=== PATIENT | female | born 1960 | race Caucasian/White ===

== ENCOUNTER 2016-03-07 12:13 | Emergency (ER) | payer BC ==
[2016-03-07 13:01] LABS: Hematocrit 38.1 % (37.0-47.0); Hemoglobin 13.2 gm/dL (12.5-16.0); Mean Cell Volume 89.4 fl (78-100); Mean Corpuscular Hgb Conc 34.6 g/dl (32-36); Mean Platelet Volume 9.6 fl (6.0-9.5); Neutrophil # 5.9 K/mm3 (1.3-6.0); Neutrophil % 59.4 % (42-75.0); Platelet Count 328 K/mm3 (150-450); Red Blood Count 4.26 M/mm3 (4.2-5.4); Red Cell Distribution Width 12.4 % (11.5-14.0); White Blood Count 9.9 K/mm3 (4.0-10.5)
[2016-03-07 13:13] LABS: Albumin * 3.7 gm/dl (3.4-5.0); BUN/Creatinine Ratio 9.1 (9.0-21.6); Bilirubin, Total 0.3 mg/dL (0.0-1.1); Ca. Corrected For Albumin 9.6 mg/dL (8.4-10.2); Calcium * 9.7 mg/dL (7.9-10.9); Total Protein 7.3 gm/dL (6.2-8.2)
[2016-03-07 13:23] LABS: Urine Appearance Clear; Urine Bilirubin Negative (NEGATIVE); Urine Blood Negative /ul (NEGATIVE); Urine Color Yellow; Urine Ketone Negative (NEGATIVE)
[2016-03-07 13:24] LABS: Urine Bacteria None Seen; Urine Nitrite Negative (NEGATIVE); Urine Protein Negative (NEGATIVE); Urine RBC None Seen /hpf (0-5); Urine Specific Gravity 1.005 SP.GR. (1.005-1.010); Urine Urobilinogen Normal (NORMAL); Urine WBC None Seen /hpf (0-5)
[2016-03-07] MEDS ORDERED: KETOROLAC TROMETHAMINE 30 MG/ML VIAL IV ONE (13:50)
[2016-03-07] MEDS ORDERED: NORMAL SALINE 1,000 ML IV PRN (13:50)
[2016-03-07] MEDS ORDERED: HYDROcodone/ACETAMINOPHEN 1 EACH TABLET PO ONE (13:50)
[2016-03-07] MEDS ORDERED: LEVOFLOXACIN/D5W 500 MG in Premix Bag 1 BAG IV ONE (13:51)
[2016-03-07] MEDS ORDERED: LEVOFLOXACIN 500 MG TABLET PO ONE (13:59)
[2016-03-07] MEDS ORDERED: HYDROcodone/ACETAMINOPHEN 1 EACH TABLET ONE (14:01)
[2016-03-07] MEDS ORDERED: LEVOFLOXACIN 500 MG TABLET ONE (14:01)
[2016-03-07 14:14] VITALS: BP 108/73
--- NOTE | 2016-03-24 10:57 | ERNOTE ---
Abdominal HPI - Narrative Date of Service: 03/07/16 - General Chief Complaint: Abdominal Pain Time Seen by Provider: 03/07/16 13:41 Source: patient Exam Limitations: no limitations - Immun/Allergies/Home Medications Immunizatons: IMMUNIZATION HX Immunizations Up to Date Yes History of Influenza Vaccine No Hx Pneumococcal Vaccination No Allergies/Adverse Reactions: Allergies sulfamethoxazole [From Bactrim] Allergy (Mild, Verified 03/10/16 09:30) Hives trimethoprim [From Bactrim] Allergy (Mild, Verified 03/10/16 09:30) Hives amoxicillin trihydrate [From Augmentin] Allergy (Unknown, Verified 03/10/16 09: 30) Hives diphenhydramine HCl [From Benadryl] Allergy (Unknown, Verified 03/10/16 09:30) morphine Adverse Reaction (Intermediate, Verified 03/10/16 09:30) personality change adhesive tape Adverse Reaction (Mild, Verified 03/10/16 09:30) skin blisters azithromycin [From Zithromax] Adverse Reaction (Mild, Verified 03/10/16 09:30) Nausea ciprofloxacin [From Cipro] Adverse Reaction (Mild, Verified 03/10/16 09:30) anxiety ciprofloxacin HCl [From Cipro] Adverse Reaction (Mild, Verified 03/10/16 09:30) anxiety codeine [Codeine] Adverse Reaction (Mild, Verified 03/10/16 09:30) Nausea doxycycline Adverse Reaction (Mild, Verified 03/10/16 09:30) Headache hydroxyzine HCl [From Vistaril] Adverse Reaction (Mild, Verified 03/10/16 09:30) parania hydroxyzine pamoate [From Vistaril] Adverse Reaction (Mild, Verified 03/10/16 09 :30) paranoia Iodinated Contrast Media - IV Dye [IV Dye, Iodine Containing Contrast ] Adverse Reaction (Mild, Verified 03/10/16 09:30) Vomiting levofloxacin [From Levaquin] Adverse Reaction (Mild, Verified 03/10/16 09:30) Other nausea, jittery loratadine [From Claritin] Adverse Reaction (Mild, Verified 03/10/16 09:30) Other nausea, jittery metronidazole [From Flagyl] Adverse Reaction (Mild, Verified 03/10/16 09:30) Vomiting Metronidazole HCl [From Flagyl] Adverse Reaction (Mild, Verified 03/10/16 09:30) Vomiting Sulfa (Sulfonamide Antibiotics) [Sulfa(Sulfonamide Antibiotics)] Adverse Reaction (Mild, Verified 03/10/16 09:30) Vomiting Home Medications: HOME MEDICATIONS Alprazolam [Xanax] 1 mg PO HS 08/30/13 [Last Taken 08/30/13] ALPRAZolam [Xanax] 0.25 mg PO BID 10/17/13 [Last Taken Unknown] Magnesium Hydroxide [Milk Of Magnesia] 30 ml PO PRN PRN 05/19/14 [Last Taken Unknown] Multivitamin [Multi-Vitamin Daily] 1 each PO DAILY 05/19/14 [Last Taken Unknown] Escitalopram Oxalate [Lexapro] 5 mg PO DAILY 07/15/14 [Last Taken Unknown] Hydrocodone/Acetaminophen [Lortab 5-325 mg Tablet] 1 each PO Q6H PRN #20 tablet 03/07/16 [Last Taken Unknown] Levofloxacin [Levaquin] 500 mg PO DAILY #10 tablet 03/07/16 [Last Taken Unknown] Polyethylene Glycol 3350 [Miralax] 17 gm PO BID 03/07/16 [Last Taken Unknown] Dicyclomine HCl [Bentyl] 10 - 20 mg PO TID #80 tab 03/10/16 [Last Taken Unknown] - History of Present Illness Narrative: Patient seen on 03/07/2016 came in the left lower abdominal pain, been going on for the past few days she's had known history of diverticulitis she's wanting to get on some antibiotics. She denies any fever has been nausea no vomiting no diarrhea no blood in her stools no headache or dizziness. Denies any chest pain or shortness of breath. Date (Duration): 03/21/16 Timing: intermittent Quality: mild Activities at Onset: none - integument Associated Symptoms: Absent: headache, back pain - L, chest pain, neck pain, diaphoresis, diarrhea-gross blood, diarrhea-mucous - K which felt, fever/chills , heartburn - just disabled and will try to give a charts, nausea, vomiting, loss of appetite - that he has saw that, shortness of breath Review of Systems - Review of Systems Constitutional: Absent: fever, chills, weakness, fatigue, malaise, weight loss - but no chills stable Respiratory: Absent: shortness of breath, cough Cardiology: Absent: palpitations, syncope Musculoskeletal: Absent: neck pain Skin: Absent: dryness - decision-making there is absolutely Neurological: Absent: headache All Other Systems: All systems neg except as marked - Patient's Past Medical History Patient History - Medical: Anxiety, Arthritis, Depression Patient History - Cardiac/Respiratory: Asthma Patient History - Cancer: No Hx of Cancer Patient History - Surgical Procedures: Cholecystectomy, Hysterectomy, Tubal Ligation Patient History - Other: None - Family History Mother Family History - Medical: History Unknown Father Family History - Medical: History Unknown - Social History Living Situations: home Smoking Status: Current some day smoker Alcohol Use: none Drug Use: none - Immunizations Immunizations Up to Date: Yes Hx Pneumococcal Vaccination: No History of Influenza Vaccine: No Physical Exam - Physical Exam General Appearance: Present: wd/wn, alert, no apparent distress Ears, Nose, Throat: Present: normal ENT inspection, hearing grossly normal, normal pharynx - normal D is no metacarpal Neck: Present: normal inspection, nontender, supple, full range of motion - symmetric in the hospital no I don't want Respiratory: Present: no respiratory distress, normal breath sounds, no accessory muscle use, chest nontender, lungs clear Cardiovascular/Chest: Present: regular rate, rhythm, no murmur, normal peripheral pulses Gastrointestinal/Abdominal: Present: normal bowel sounds, nondistended, soft, no organomegaly, tenderness - minimal tenderness left lower quadrant no rebound guarding rigidity Back Exam: Present: normal inspection Extremity Exam: Present: normal inspection, non-tender Neurological Exam: Present: alert, oriented, normal mood/affect Skin Exam: Present: normal color, warm/dry Lymphatic Exam: Present: no adenopathy ED Progress - Progress/Reassessment Chief Complaint: Abdominal Pain Progress:: Unchanged Progress Note-Subjective: 03/07/16 13:55 Patient reassessed doing well defers on any imaging tests at this point time reviewed lab work, and antibiotic levofloxacin she is to return back to ER with any change or worsening symptoms. Warning signs symptoms have been reviewed with patient return back to ER with good understanding Departure - Departure Clinical Impression: Diverticulitis Qualifiers: Diverticulitis site: large intestine Diverticulitis bleeding: without bleeding Diverticulitis complication: without perforation or abscess Qualified Code(s): K57.32 - Diverticulitis of large intestine without perforation or abscess without bleeding Disposition: Home self-care Condition: Good Instructions: Diverticulitis, [id number] Additional Instructions: follow of the doctor in 2 to 3 days returning back to the ER with any change or worsening symptoms Referrals: Christian Orta DO [Primary Care Provider] - Prescriptions: Hydrocodone/Acetaminophen [Lortab 5-325 mg Tablet] 1 each PO Q6H PRN #20 tablet PRN Reason: Pain Levofloxacin [Levaquin] 500 mg PO DAILY #10 tablet
== END 2016-03-07 14:19 | disposition home or self-care (01) ==
LOC: ER 12:13
DX: K57.32 Diverticulitis of large intestine without perforation or abscess without bleeding (principal); F17.210 Nicotine dependence, cigarettes, uncomplicated; F41.9 Anxiety disorder, unspecified; F32.9 Major depressive disorder, single episode, unspecified

== ENCOUNTER 2016-03-10 09:11 | Emergency (ER) | payer BC ==
[2016-03-10] MEDS ORDERED: ONDANSETRON HCL/PF 2 MG/ML VIAL IV PRN (10:11)
[2016-03-10] MEDS ORDERED: KETOROLAC TROMETHAMINE 30 MG/ML VIAL IV ONE (10:19)
[2016-03-10] MEDS ORDERED: NORMAL SALINE 1,000 ML IV ONE (10:19)
--- NOTE | 2016-03-10 10:20 | ERNOTE ---
Abdominal HPI - Narrative Date of Service: 03/10/16 - General Chief Complaint: Abdominal Pain Time Seen by Provider: 03/10/16 09:57 Source: patient Exam Limitations: no limitations - Immun/Allergies/Home Medications Immunizatons: IMMUNIZATION HX Immunizations Up to Date Yes History of Influenza Vaccine No Hx Pneumococcal Vaccination No Allergies/Adverse Reactions: Allergies sulfamethoxazole [From Bactrim] Allergy (Mild, Verified 03/10/16 09:30) Hives trimethoprim [From Bactrim] Allergy (Mild, Verified 03/10/16 09:30) Hives amoxicillin trihydrate [From Augmentin] Allergy (Unknown, Verified 03/10/16 09: 30) Hives diphenhydramine HCl [From Benadryl] Allergy (Unknown, Verified 03/10/16 09:30) morphine Adverse Reaction (Intermediate, Verified 03/10/16 09:30) personality change adhesive tape Adverse Reaction (Mild, Verified 03/10/16 09:30) skin blisters azithromycin [From Zithromax] Adverse Reaction (Mild, Verified 03/10/16 09:30) Nausea ciprofloxacin [From Cipro] Adverse Reaction (Mild, Verified 03/10/16 09:30) anxiety ciprofloxacin HCl [From Cipro] Adverse Reaction (Mild, Verified 03/10/16 09:30) anxiety codeine [Codeine] Adverse Reaction (Mild, Verified 03/10/16 09:30) Nausea doxycycline Adverse Reaction (Mild, Verified 03/10/16 09:30) Headache hydroxyzine HCl [From Vistaril] Adverse Reaction (Mild, Verified 03/10/16 09:30) parania hydroxyzine pamoate [From Vistaril] Adverse Reaction (Mild, Verified 03/10/16 09 :30) paranoia Iodinated Contrast Media - IV Dye [IV Dye, Iodine Containing Contrast ] Adverse Reaction (Mild, Verified 03/10/16 09:30) Vomiting levofloxacin [From Levaquin] Adverse Reaction (Mild, Verified 03/10/16 09:30) Other nausea, jittery loratadine [From Claritin] Adverse Reaction (Mild, Verified 03/10/16 09:30) Other nausea, jittery metronidazole [From Flagyl] Adverse Reaction (Mild, Verified 03/10/16 09:30) Vomiting Metronidazole HCl [From Flagyl] Adverse Reaction (Mild, Verified 03/10/16 09:30) Vomiting Sulfa (Sulfonamide Antibiotics) [Sulfa(Sulfonamide Antibiotics)] Adverse Reaction (Mild, Verified 03/10/16 09:30) Vomiting Home Medications: HOME MEDICATIONS Alprazolam [Xanax] 1 mg PO HS 08/30/13 [Last Taken 08/30/13] ALPRAZolam [Xanax] 0.25 mg PO BID 10/17/13 [Last Taken Unknown] Magnesium Hydroxide [Milk Of Magnesia] 30 ml PO PRN PRN 05/19/14 [Last Taken Unknown] Multivitamin [Multi-Vitamin Daily] 1 each PO DAILY 05/19/14 [Last Taken Unknown] Escitalopram Oxalate [Lexapro] 5 mg PO DAILY 07/15/14 [Last Taken Unknown] Hydrocodone/Acetaminophen [Lortab 5-325 mg Tablet] 1 each PO Q6H PRN #20 tablet 03/07/16 [Last Taken Unknown] Levofloxacin [Levaquin] 500 mg PO DAILY #10 tablet 03/07/16 [Last Taken Unknown] Polyethylene Glycol 3350 [Miralax] 17 gm PO BID 03/07/16 [Last Taken Unknown] Dicyclomine HCl [Bentyl] 10 - 20 mg PO TID #80 tab 03/10/16 [Last Taken Unknown] - History of Present Illness Narrative: Pt. with known hx of constipation and diverticulitis comes in with c/o L abdominal pain for a week that has worsened despite starting treatment for diverticulitis on 03/07/16. Pt. states that she has been trying sprite, water, soup, juice, and yogurt to limit her diet for treatment without relief. Review of Systems - Review of Systems Constitutional: Present: no symptoms reported. Absent: recent illness, fever, chills, malaise, weight loss EYE: Present: no symptoms reported. Absent: eye pain, blurred vision, double vision, vision changes ENT: Present: no symptoms reported. Absent: ear pain, nose pain, nose congestion, nasal drainage, sore throat Respiratory: Present: no symptoms reported. Absent: shortness of breath, cough , wheezing Cardiology: Present: no symptoms reported. Absent: chest pain, palpitations, edema Gastrointestinal/Abdominal: Present: nausea, constipation, abdominal pain, eating less, drinking less Genitourinary: Present: no symptoms reported Musculoskeletal: Present: back pain - B flank Skin: Present: no symptoms reported. Absent: rash, lesions Neurological: Present: no symptoms reported. Absent: anxiety, weakness, numbness Endocrine: Present: no symptoms reported All Other Systems: All systems neg except as marked - Patient's Past Medical History Patient History - Medical: Anxiety, Arthritis, Depression, Other - diverticulitis Patient History - Cancer: No Hx of Cancer Patient History - Surgical Procedures: Cholecystectomy, Hysterectomy, Tubal Ligation, Other - adhesion removal - Family History Mother Family History - Medical: History Unknown Father Family History - Medical: History Unknown - Social History Living Situations: home Smoking Status: Current every day smoker Have you smoked in the past 12 months: Yes Do you dip or chew tobacco: No Alcohol Use: none Drug Use: none Physical Exam - Physical Exam General Appearance: Present: wd/wn, alert, no apparent distress Eye Exam: Normal inspection: bilateral, PERRL: bilateral, EOMI: bilateral Ears, Nose, Throat: Present: normal ENT inspection, hearing grossly normal Neck: Present: normal inspection, nontender, supple, full range of motion. Absent: lymphadenopathy (R), lymphadenopathy (L) Respiratory: Present: no respiratory distress, normal breath sounds, no accessory muscle use, chest nontender, lungs clear Cardiovascular/Chest: Present: regular rate, rhythm, no murmur, normal peripheral pulses Gastrointestinal/Abdominal: Present: abnormal bowel sounds - hypo, distended, guarding. Absent: McBurney sign, Obturator sign, Kelley sign, Psoas sign Back Exam: Present: normal range of motion, no vertebral tenderness, CVA tenderness (R), CVA tenderness (L) Extremity Exam: Present: normal inspection Neurological Exam: Present: alert, oriented, normal mood/affect, no motor/ sensory deficits Skin Exam: Present: normal color, warm/dry ED Progress - Results and Orders Patient's Lab Results:: I have reviewed the patient's lab results. - Vital Signs Patient's Vital Signs:: I have reviewed the patient's vital signs. Vital Signs: Vital Signs 03/10/16 09:24 Temperature 36.4 C L Pulse Rate 95 Respiratory 16 Rate Blood Pressure 96/69 O2 Sat by Pulse 96 Oximetry - CT/Ultrasound CT/Ultrasound Narrative: CT abdomen: IMPRESSION: DIVERTICULOSIS WITH CHANGES SUGGESTING EARLY OR MILD SIGMOID DIVERTICULITIS. ATHEROSCLEROTIC DISEASE. NO ACUTE INTRA-ABDOMINAL OR PELVIC PATHOLOGY OTHERWISE IDENTIFIED WITHIN THE LIMITATIONS OF A NONCONTRAST STUDY. - Progress/Reassessment Chief Complaint: Abdominal Pain Departure - Departure Clinical Impression: Diverticulitis Qualifiers: Diverticulitis site: large intestine Diverticulitis bleeding: without bleeding Diverticulitis complication: without perforation or abscess Qualified Code(s): K57.32 - Diverticulitis of large intestine without perforation or abscess without bleeding Disposition: Home self-care Condition: Good Instructions: Diverticulitis, [id number] Additional Instructions: Please follow up with primary provider in 2-3 days. Continue current antibiotic treatment. Prescriptions: Dicyclomine HCl [Bentyl] 10 - 20 mg PO TID #80 tab
[2016-03-10 10:23] LABS: Urine Bilirubin Negative (NEGATIVE); Urine Blood Negative /ul (NEGATIVE); Urine Ketone Negative (NEGATIVE); Urine Nitrite Negative (NEGATIVE); Urine Protein Negative (NEGATIVE); Urine Specific Gravity <=1.005 SP.GR. (1.005-1.010); Urine Urobilinogen Normal (NORMAL)
[2016-03-10] MEDS ORDERED: KETOROLAC TROMETHAMINE 30 MG/ML VIAL ONE (10:25)
[2016-03-10] MEDS ORDERED: ONDANSETRON HCL/PF 2 MG/ML VIAL ONE (10:25)
[2016-03-10 10:31] LABS: Hematocrit 39.2 % (37.0-47.0); Hemoglobin 13.5 gm/dL (12.5-16.0); Mean Cell Volume 88.9 fl (78-100); Mean Corpuscular Hemoglobin 30.6 pg (27-31); Mean Corpuscular Hgb Conc 34.4 g/dl (32-36); Mean Platelet Volume 9.8 fl (6.0-9.5); Neutrophil # 5.9 K/mm3 (1.3-6.0); Neutrophil % 61.5 % (42-75.0); Platelet Count 338 K/mm3 (150-450); Red Blood Count 4.41 M/mm3 (4.2-5.4); Red Cell Distribution Width 12.3 % (11.5-14.0); White Blood Count 9.6 K/mm3 (4.0-10.5)
[2016-03-10 10:33] LABS: Urine Appearance Clear; Urine Bacteria None Seen; Urine Color Yellow; Urine RBC None Seen /hpf (0-5); Urine WBC None Seen /hpf (0-5)
[2016-03-10 10:44] LABS: Albumin * 3.6 gm/dl (3.4-5.0); Anion Gap 13.4 mmol/L (6.8-13.8); BUN/Creatinine Ratio 15.5 (9.0-21.6); Bilirubin, Total 0.2 mg/dL (0.0-1.1); Ca. Corrected For Albumin 9.8 mg/dL (8.4-10.2); Calcium * 9.8 mg/dL (7.9-10.9); Carbon Dioxide 27.5 mmol/L (24-32.6); Potassium 3.9 mmol/L (3.4-4.6); Total Protein 7.9 gm/dL (6.2-8.2)
[2016-03-10] MEDS ORDERED: ONDANSETRON HCL/PF 2 MG/ML VIAL IV ONE (10:44)
[2016-03-10] MEDS ORDERED: DIATRIZOATE MEGLU/DIATRIZO SOD 30 ML BTL ONE (10:52)
[2016-03-10] MEDS ORDERED: DIATRIZOATE MEGLU/DIATRIZO SOD 30 ML BTL PO ONE (10:54)
[2016-03-10 12:52] VITALS: BP 99/72
== END 2016-03-10 13:19 | disposition home or self-care (01) ==
LOC: ER 09:11
DX: K57.32 Diverticulitis of large intestine without perforation or abscess without bleeding (principal); F17.210 Nicotine dependence, cigarettes, uncomplicated; Z90.49 Acquired absence of other specified parts of digestive tract; Z90.710 Acquired absence of both cervix and uterus; F41.1 Generalized anxiety disorder

== ENCOUNTER 2016-08-27 20:47 | Emergency (ER) | payer BC ==
[2016-08-27 21:13] LABS: Urine Bilirubin Negative (NEGATIVE); Urine Ketone Negative (NEGATIVE); Urine Nitrite Negative (NEGATIVE); Urine Protein Negative (NEGATIVE); Urine Specific Gravity <=1.005 SP.GR. (1.005-1.010); Urine Urobilinogen Normal (NORMAL); Urine pH 5.5 pH (5.0-7.0)
[2016-08-27] MEDS ORDERED: ONDANSETRON HCL/PF 2 MG/ML VIAL IV ONE ×2 (21:19→22:50)
[2016-08-27] MEDS ORDERED: NORMAL SALINE 1,000 ML IV ONE (21:19)
[2016-08-27 21:21] LABS: Urine Appearance Clear; Urine Blood 5 /ul (NEGATIVE); Urine Color Yellow
[2016-08-27 21:22] LABS: Urine Bacteria TRACE; Urine RBC None Seen /hpf (0-5); Urine WBC None Seen /hpf (0-5)
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
[2016-08-27 21:31] LABS: Hemoglobin 13.6 gm/dL (12.5-16.0); Mean Corpuscular Hemoglobin 31.1 pg (27-31); Mean Corpuscular Hgb Conc 34.9 g/dl (32-36); Mean Platelet Volume 9.8 fl (6.0-9.5); Neutrophil # 7.4 K/mm3 (1.3-6.0); Neutrophil % 66.9 % (42-75.0); Platelet Count 350 K/mm3 (150-450); Red Blood Count 4.38 M/mm3 (4.2-5.4); Red Cell Distribution Width 12.4 % (11.5-14.0)
[2016-08-27] MEDS ORDERED: ONDANSETRON HCL/PF 2 MG/ML VIAL ONE ×2 (21:31→22:52)
[2016-08-27 21:44] LABS: ALT 29 U/L (19-67); AST 17 U/L (0-48); Alkaline Phosphatase * 80 U/L (50-170); Anion Gap 15.8 mmol/L (6.8-13.8); BUN/Creatinine Ratio 18.1 (9.0-21.6); Bilirubin, Total 0.3 mg/dL (0.0-1.1); Blood Urea Nitrogen 13 mg/dL (3-23); Ca. Corrected For Albumin 9.3 mg/dL (8.4-10.2); Calcium * 9.6 mg/dL (7.9-10.9); Carbon Dioxide 25.4 mmol/L (24-32.6); Chloride 105 mmol/L (97-106); Glucose * 119 mg/dL (70-110); Potassium 4.2 mmol/L (3.4-4.6); Sodium 142 mmol/L (132-142); Total Protein 7.9 gm/dL (6.2-8.2)
[2016-08-27] MEDS ORDERED: DIATRIZOATE MEGLU/DIATRIZO SOD 30 ML BTL PO ONE (22:48)
[2016-08-27] MEDS ORDERED: DIATRIZOATE MEGLU/DIATRIZO SOD 30 ML BTL ONE (22:52)
[2016-08-27] MEDS ORDERED: ACETAMINOPHEN 500 MG TABLET PO ONE ×2 (23:57)
[2016-08-28 01:07] VITALS: BP 109/65
[2016-08-28] MEDS ORDERED: PROMETHAZINE HCL 25 MG/ML AMPUL IM ONE (01:26)
[2016-08-28] MEDS ORDERED: PROMETHAZINE HCL 25 MG/ML AMPUL ONE (01:28)
== END 2016-08-28 01:40 | disposition home or self-care (01) ==
LOC: ER 20:47
DX: K57.90 Diverticulosis of intestine, part unspecified, without perforation or abscess without bleeding (principal); K59.00 Constipation, unspecified; F17.200 Nicotine dependence, unspecified, uncomplicated
CPT/HCPCS: 36415; 74020; 74176; 80053; 81001; 85025; 85652; 86140; 93005; 96372; 96374; 99284; J2405

== ENCOUNTER 2020-05-08 03:49 | Inpatient (IN) ==
[2020-05-08] MEDS ORDERED: ONDANSETRON HCL/PF 2 MG/ML VIAL IV ONE (04:22)
[2020-05-08] MEDS ORDERED: NORMAL SALINE 1,000 ML IV ONE (04:22)
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
[2020-05-08 04:34] LABS: Hematocrit 36.7 % (37.0-47.0); Hemoglobin 12.1 gm/dL (12.5-16.0); Mean Cell Volume 91.8 fl (78-100); Mean Corpuscular Hemoglobin 30.3 pg (27-31); Mean Platelet Volume 9.3 fl (8-12.5); Neutrophil # 8.6 K/mm3 (1.3-6.0); Platelet Count 355 K/mm3 (150-450); Red Cell Distribution Width 12.3 % (11.5-14.0); White Blood Count 11.8 K/mm3 (4.0-10.5)
[2020-05-08 04:47] LABS: Albumin * 3.3 gm/dl (3.4-5.0); Anion Gap 13.2 mmol/L (6.8-13.8); BUN/Creatinine Ratio 8.4 (9.0-21.6); Bilirubin, Total 0.4 mg/dL (0.0-1.1); Calcium * 8.8 mg/dL (7.9-10.9); Carbon Dioxide 28.6 mmol/L (24-32.6); Potassium 3.8 mmol/L (3.4-4.6); Total Protein 7.1 gm/dL (6.2-8.2)
[2020-05-08] MEDS ORDERED: KETOROLAC TROMETHAMINE 30 MG/ML VIAL IV ONE (05:51)
[2020-05-08] MEDS ORDERED: MEROPENEM 1 GM in NORMAL SALINE 100 ML IV ONE (06:00)
[2020-05-08] MEDS ORDERED: CYCLOBENZAPRINE HCL 10 MG TABLET PO PRN (08:39)
[2020-05-08] MEDS ORDERED: ALBUTEROL SULFATE/IPRATROPIUM 3 ML NEBU IH PRN (08:43)
[2020-05-08] MEDS ORDERED: ALPRAZolam 0.25 MG TABLET PO PRN (08:43)
[2020-05-08] MEDS ORDERED: ALBUTEROL SULFATE 2.5 MG/0.5 ML VIAL.NEB IH PRN (08:45)
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
[2020-05-08] MEDS: HYDROmorphone HCL 1 MG/ML DISP.SYRIN IV PRN ×2 (08:59→20:07)
[2020-05-08] MEDS: VITAMIN E (DL,TOCOPHERYL ACET) 400 UNITS CAPSULE PO SCH (09:30)
[2020-05-08] MEDS: SACCHAROMYCES BOULARDII 250 MG CAPSULE PO SCH ×2 (09:30→20:11)
[2020-05-08] MEDS: PANTOPRAZOLE SODIUM 20 MG TABLET.DR PO SCH (09:30)
[2020-05-08] MEDS: CYANOCOBALAMIN 1,000 MCG TABLET PO SCH (09:30)
[2020-05-08] MEDS: ASCORBIC ACID 500 MG TABLET PO SCH (09:31)
[2020-05-08] MEDS: CHOLECALCIFEROL 1,000 UNIT CAPSULE PO SCH (09:31)
[2020-05-08] MEDS: FLUTICASONE PROPION/SALMETEROL 14 PUFF DISK.W.DEV IH SCH ×2 (09:31→20:11)
[2020-05-08] MEDS: MULTIVITAMINS 1 CAP CAPSULE PO SCH (09:31)
[2020-05-08] MEDS: POLYETHYLENE GLYCOL 3350 17 GM PACKET PO SCH ×2 (09:32→20:11)
[2020-05-08] MEDS: PSYLLIUM SEED 1 PACKET PACKET PO SCH (09:32)
[2020-05-08] MEDS: KETOROLAC TROMETHAMINE 30 MG/ML VIAL IV PRN ×2 (13:51→20:04)
[2020-05-08] MEDS: MEROPENEM 1 GM in NORMAL SALINE 100 ML IV SCH ×2 (13:52→21:13)
[2020-05-08] MEDS: ACETAMINOPHEN 325 MG TABLET PO PRN (15:33)
[2020-05-09] MEDS: HYDROmorphone HCL 1 MG/ML DISP.SYRIN IV PRN ×2 (02:10→08:08)
[2020-05-09] MEDS: KETOROLAC TROMETHAMINE 30 MG/ML VIAL IV PRN ×4 (03:09→23:49)
[2020-05-09 06:16] LABS: Hemoglobin 10.8 gm/dL (12.5-16.0); Mean Cell Volume 93.5 fl (78-100); Mean Corpuscular Hemoglobin 30.6 pg (27-31); Mean Corpuscular Hgb Conc 32.7 g/dl (32-36); Mean Platelet Volume 9.5 fl (8-12.5); Neutrophil # 5.8 K/mm3 (1.3-6.0); Neutrophil % 60.2 % (42-75.0); Platelet Count 306 K/mm3 (150-450); Red Blood Count 3.53 M/mm3 (4.2-5.4); Red Cell Distribution Width 12.5 % (11.5-14.0); White Blood Count 9.7 K/mm3 (4.0-10.5)
[2020-05-09 06:28] LABS: Anion Gap 10.3 mmol/L (6.8-13.8); BUN/Creatinine Ratio 6.7 (9.0-21.6); Bilirubin, Total 0.3 mg/dL (0.0-1.1); Ca. Corrected For Albumin 8.9 mg/dL (8.4-10.2); Calcium * 8.4 mg/dL (7.9-10.9); Carbon Dioxide 27.2 mmol/L (24-32.6); Potassium 3.5 mmol/L (3.4-4.6); Total Protein 6.2 gm/dL (6.2-8.2)
[2020-05-09] MEDS: MEROPENEM 1 GM in NORMAL SALINE 100 ML IV SCH ×3 (06:48→21:04)
[2020-05-09] MEDS: PANTOPRAZOLE SODIUM 20 MG TABLET.DR PO SCH (06:48)
[2020-05-09] MEDS: POLYETHYLENE GLYCOL 3350 17 GM PACKET PO SCH ×2 (08:07→20:59)
[2020-05-09] MEDS: CHOLECALCIFEROL 1,000 UNIT CAPSULE PO SCH (08:07)
[2020-05-09] MEDS: PSYLLIUM SEED 1 PACKET PACKET PO SCH (08:07)
[2020-05-09] MEDS: FLUTICASONE PROPION/SALMETEROL 14 PUFF DISK.W.DEV IH SCH ×2 (08:07→20:58)
[2020-05-09] MEDS: SACCHAROMYCES BOULARDII 250 MG CAPSULE PO SCH ×2 (08:08→20:58)
[2020-05-09] MEDS: MULTIVITAMINS 1 CAP CAPSULE PO SCH (08:08)
[2020-05-09] MEDS: VITAMIN E (DL,TOCOPHERYL ACET) 400 UNITS CAPSULE PO SCH (08:08)
[2020-05-09] MEDS: CYANOCOBALAMIN 1,000 MCG TABLET PO SCH (08:08)
[2020-05-09] MEDS: ASCORBIC ACID 500 MG TABLET PO SCH (08:08)
[2020-05-09] MEDS ORDERED: HYDROmorphone HCL 2 MG TABLET PO PRN (08:14)
[2020-05-09] MEDS ORDERED: ONDANSETRON 4 MG TAB.RAPDIS PO PRN (09:01)
--- NOTE | 2020-05-09 09:10 | PN ---
Subjective - Date and Time Seen Date: 05/09/20 Time: 08:19 Subjective Narrative: She states she feels well today. She has been ambulating. She had a bowel movement today. She is tolerating her diet. Denies nausea or vomiting. Her abdominal pain is 5-6 out of 10 and is well controlled with IV medications Objective - Review of Systems Generalized/Overall Review: Denies: Fever Respiratory: Denies: Shortness of Breath Cardiac: Denies: Chest Pain Abdominal: Reports: Abdominal Pain - Left lower quadrant Misc: All systems neg except as marked - Vitals Vitals: Last Vital Signs Temp 36.7 C 05/09/20 06:46 Pulse 86 05/09/20 06:46 Resp 16 05/09/20 06:46 BP 113/71 05/09/20 06:46 Pulse Ox 97 05/09/20 06:46 - Abnormal Lab Findings Abnormal Lab Findings: Abnormal Lab Results 05/09/20 05/09/20 Range/Units 06:11 06:11 RBC 3.53 L (4.2-5.4) M/mm3 Hgb 10.8 L (12.5-16.0) gm/dL Hct 33.0 L (37.0-47.0) % Monocytes % 9.4 H (0.0-9) % BUN/Creatinine Ratio 6.7 L (9.0-21.6) Albumin 3.0 L (3.4-5.0) gm/dl - Exam Constitutional: Present: Alert, Oriented x3, Cooperative, Well developed, Well nourished, No distress ENT Exam: Present: hearing grossly normal, moist mucous membranes Neck: Present: non-tender, supple. Absent: lymphadenopathy (R), lymphadenopathy (L) Respiratory: Present: lungs clear, no respiratory distress, no accessory muscle use, No wheezing. Absent: crackles, rhonchi Cardiovascular/Chest: Present: normal peripheral pulses, regular rate, rhythm, no edema, no murmur Abdomen: Present: Normal bowel sounds, soft, obese, tender - Left lower quadrant. Absent: rebound tenderness Extremity: Present: no pedal edema Skin Exam: Present: normal color, warm/dry Neurologic: Present: alert, normal mood/affect Appearance: Present: appropriate appearance, appropriate insight Eye contact: Present: cooperative, good eye contact Thoughts: Present: normal thought pattern, normal mood /affect Assessment/Plan Plan Narrative: 59-year-old female with a past medical history of diverticulitis, anxiety, depression, obesity, osteoarthritis, asthma, GERD presents from home with complaints of headache, nausea, vomiting and abdominal pain. She developed her symptoms 3 days ago and presented to the ER. She was diagnosed with diverticulitis and sent home on tramadol. Her pain persisted and she returned to the ER yesterday. CT abdomen and pelvis was performed and that showed acute uncomplicated sigmoid diverticulitis, she had a mild leukocytosis of 11.8, the rest of her vitals were stable. She states she had a fever at home with a temperature of 100. Her vitals have been stable here. She was discharged home on Levaquin and tramadol. She presented to the ER for the second time yesterday and was given Dilaudid for pain management. She states the oral Dilaudid was n ot effective and she developed a severe headache, nausea and vomiting and presented back to the ER. She was admitted early this morning and was started on meropenem. She has an extensive allergy/adverse effect to many medications that 5 meropenem was chosen. Her leukocytosis has resolved. White blood cell has come down from 11.8-9.7. She is tolerating a liquid diet. I will advance her to a soft diet today. I will attempt to transition her to oral Dilaudid. Start Zofran as needed for nausea. Discharge planning for tomorrow on ertapenem IV 1 g daily to be administered in the [place]. Plan #1 continue with meropenem 1 g every 8 hours, day 2, continue with probiotics #2 pain management transition her to oral Dilaudid 1 mg every 4 hours as needed. #3 CBC and CMP in the morning #4 VTE prophylaxis with SCDs and early ambulation, because I am using Toradol for pain management I would like to minimize her risk of bleeding.. #5 resume home medications for comorbidities #6 start Zofran 4 mg every 6 hours as needed. - Problems/Diagnosis (1) Diverticulitis Problem: Acute (2) Headache Problem: Resolved Qualifiers: Headache type: tension-type (3) Anxiety and depression Problem: Chronic (4) GERD (gastroesophageal reflux disease) Problem: Chronic Qualifiers: (5) Obesity (BMI 30.0-34.9) Problem: Chronic (6) Osteoarthritis Problem: Chronic
[2020-05-09] MEDS: HYDROmorphone HCL 2 MG TABLET PO PRN ×2 (14:49→19:00)
[2020-05-09] MEDS ORDERED: HYDROmorphone HCL 2 MG TABLET ONE (18:58)
[2020-05-09] MEDS: ACETAMINOPHEN 325 MG TABLET PO PRN (21:40)
[2020-05-10] MEDS: ACETAMINOPHEN 325 MG TABLET PO PRN (05:52)
[2020-05-10] MEDS: MEROPENEM 1 GM in NORMAL SALINE 100 ML IV SCH (05:56)
[2020-05-10] MEDS: PANTOPRAZOLE SODIUM 20 MG TABLET.DR PO SCH (06:14)
[2020-05-10] MEDS: FLUTICASONE PROPION/SALMETEROL 14 PUFF DISK.W.DEV IH SCH (08:48)
[2020-05-10] MEDS: CHOLECALCIFEROL 1,000 UNIT CAPSULE PO SCH (08:52)
[2020-05-10] MEDS: MULTIVITAMINS 1 CAP CAPSULE PO SCH (08:52)
[2020-05-10] MEDS: CYANOCOBALAMIN 1,000 MCG TABLET PO SCH (08:52)
[2020-05-10] MEDS: SACCHAROMYCES BOULARDII 250 MG CAPSULE PO SCH (08:52)
[2020-05-10] MEDS: PSYLLIUM SEED 1 PACKET PACKET PO SCH (08:53)
[2020-05-10] MEDS: ASCORBIC ACID 500 MG TABLET PO SCH (08:53)
[2020-05-10] MEDS: VITAMIN E (DL,TOCOPHERYL ACET) 400 UNITS CAPSULE PO SCH (08:53)
[2020-05-10] MEDS: POLYETHYLENE GLYCOL 3350 17 GM PACKET PO SCH (08:54)
[2020-05-10] MEDS ORDERED: LEVOFLOXACIN 750 MG TABLET PO ONE (08:56)
--- NOTE | 2020-05-10 08:56 | DS ---
(1) Diverticulitis Problem: Acute (2) Headache Problem: Resolved Qualifiers: Headache type: tension-type (3) Anxiety and depression Problem: Chronic (4) GERD (gastroesophageal reflux disease) Problem: Chronic Qualifiers: (5) Obesity (BMI 30.0-34.9) Problem: Chronic (6) Osteoarthritis Problem: Chronic Hospital Course: 59-year-old female with a past medical history of diverticulitis, anxiety, depression, obesity, osteoarthritis, asthma, GERD presents from home with complaints of headache, nausea, vomiting and abdominal pain. She developed her symptoms 3 days ago and presented to the ER. She was diagnosed with diverticulitis and sent home on tramadol. Her pain persisted and she returned to the ER yesterday. CT abdomen and pelvis was performed and that showed acute uncomplicated sigmoid diverticulitis, she had a mild leukocytosis of 11.8, the rest of her vitals were stable. She states she had a fever at home with a temperature of 100. Her vitals have been stable here. She was discharged home on Levaquin and tramadol. She presented to the ER for the second time yesterday and was given Dilaudid for pain management. She states the oral Dilaudid was not effective and she developed a severe headache, nausea and vomiting and presented back to the ER. She was admitted early this morning and was started on meropenem. She has an extensive allergy/adverse effect to many medications that 5 meropenem was chosen. Her leukocytosis has resolved. White blood cell has come down from 11.8-9.7. She is tolerating a soft diet and moving her bowels. She feels well and is stable to be discharged home today. I will send her home on Levaquin 750 mg for 4 more days (she already has a prescription for Levaquin that she had picked up when she was sent home from the ER the first time). She will get 1 dose of Levaquin before she leaves today and will have a total of 7 days of antibiotics. Follow-up with me in the office in 1 week. Procedures Performed: none Results and Findings: Lab Pending Results 05/08/20 04:25: WBC 11.8 H, RBC 4.00 L, Hgb 12.1 L, Hct 36.7 L, MCV 91.8, MCH 30.3, MCHC 33.0, RDW 12.3, Plt Count 355, MPV 9.3, Immature Gran % (Auto) 0.50 H, Immature Gran # (Auto) 0.06 H, Neutrophils % 73.0, Lymphocytes % 15.6 L, Monocytes % 9.7 H, Eosinophils % 0.9, Basophils % 0.3, Nucleated RBC % 0.0, Neutrophils # 8.6 H, Lymphocytes # 1.83, Monocytes # 1.1 H, Eosinophils # 0.1, Absolute Basophils 0.0 05/08/20 04:25: Sodium 139, Plasma Sodium 139, Potassium 3.8, Chloride 101, Carbon Dioxide 28.6, Anion Gap 13.2, BUN 7, Creatinine 0.83, Est GFR (Non-Af Amer) 75 D, BUN/Creatinine Ratio 8.4 L, Random Glucose 120 H, Calcium 8.8, Calcium Adj for Albumin 9.0, Total Bilirubin 0.4, AST 16, ALT 34, Alkaline Phosphatase 82, Total Protein 7.1, Albumin 3.3 L 05/08/20 04:25: Lactic Acid, Venous 0.5 05/08/20 05:30: SARS-CoV-2 (PCR) Not detected 05/09/20 06:11: WBC 9.7, RBC 3.53 L, Hgb 10.8 L, Hct 33.0 L, MCV 93.5, MCH 30.6, MCHC 32.7, RDW 12.5, Plt Count 306, MPV 9.5, Immature Gran % (Auto) 0.30, Immature Gran # (Auto) 0.03, Neutrophils % 60.2, Lymphocytes % 27.9, Monocytes % 9.4 H, Eosinophils % 1.7, Basophils % 0.5, Nucleated RBC % 0.0, Neutrophils # 5.8, Lymphocytes # 2.70, Monocytes # 0.9, Eosinophils # 0.2, Absolute Basophils 0.1 05/09/20 06:11: Sodium 140, Plasma Sodium 140, Potassium 3.5, Chloride 106, Carbon Dioxide 27.2, Anion Gap 10.3, BUN 5, Creatinine 0.75, Est GFR (Non-Af Amer) 84, BUN/Creatinine Ratio 6.7 L, Random Glucose 109, Calcium 8.4, Calcium Adj for Albumin 8.9, Total Bilirubin 0.3, AST 16, ALT 38, Alkaline Phosphatase 76, Total Protein 6.2, Albumin 3.0 L Discharge Location: Home Disposition: Home self-care Condition: Good Discharge Activity: Activity as tolerated Discharge Diet: General/regular food Prescriptions (Any new or edited meds): Fluticasone Propion/Salmeterol [Advair 250-50 Diskus] 1 puff IH BID #1 disk.w.dev Transmission Status: Pending to [place], [place] Levofloxacin 250 mg PO DAILY #1 tab Transmission Status: Pending to [place], [place] Complete Home Medications List: Complete Home Medication List: Multivitamin [Multi-Vitamin Daily] 1 ea PO DAILY 05/19/14 Nebulizer and Compressor [Easy Air Compressor Nebulizer] 1 ea MC QID #1 ea 06/09/19 polyethylene glycol 3350 17 gram/dose oral powder 17 g PO BID g 09/25/19 alprazolam 0.5 mg tablet 0.25 mg PO HS PRN #15 tab 01/31/20 albuterol sulfate 90 mcg/actuation aerosol inhaler See Rx Instructions .ROUTE .COMPLEX #8.5 g 03/27/20 omeprazole 20 mg capsule,delayed release 20 mg PO DAILY cap 04/01/20 Ascorbic Acid [Vitamin C] 500 mg PO DAILY 04/16/20 Cholecalciferol (Vitamin D3) [Vitamin D3] 1,000 mcg PO DAILY 04/16/20 Cyanocobalamin (Vitamin B-12) [Vitamin B12] 2,500 mcg PO DAILY 04/16/20 Vitamin E (Dl,Tocopheryl Acet) [Vitamin E] 450 mg PO DAILY 04/16/20 Wheat Dextrin [Benefiber] 1 ea PO DAILY 05/05/20 ipratropium 0.5 mg-albuterol 3 mg (2.5 mg base)/3 mL nebulization soln 3 ml IH QID PRN #180 ml 05/06/20 HYDROmorphone HCL [Dilaudid] 1 mg PO Q6H PRN #20 tab 05/07/20 Fluticasone Propion/Salmeterol [Advair 250-50 Diskus] 1 puff IH BID #1 disk.w.dev 05/10/20 Levofloxacin 250 mg PO DAILY #1 tab 05/10/20 Forms: Patient Portal Registration
[2020-05-10 10:09] VITALS: BP 126/67
== END 2020-05-10 09:49 | disposition home or self-care (01) | DRG 392 ==
LOC: ER 03:49 → MS 06:45
PROVIDERS: ADMIT Family Medicine; ATTEND Internal Medicine